=== PATIENT | female | born 1985 | race Caucasian/White ===

== ENCOUNTER → 2022-01-16 | Outpatient (REF) | LOC: M PLAIMG 12:21 | PROVIDERS: ATTEND Internal Medicine | DX: Z00.00 Encounter for general adult medical examination without abnormal findings (principal) ==

== ENCOUNTER → 2024-08-04 | Outpatient (REF) | LOC: M PLAIMG 13:05 | PROVIDERS: ATTEND Internal Medicine | DX: R52 Pain, unspecified (principal) ==